=== PATIENT | female | born 1980 | race Caucasian/White ===

== ENCOUNTER 2017-12-09 09:20 | Emergency (ER) | payer OTHER ==
[~2017-12-09] VITALS: Ht 160 cm; Wt 100.0 kg
[2017-12-09 09:20] VITALS: BP 119/75; PULSE 90; RESP 16; TEMP 98.2
[~2017-12-09 09:20] MED LIST: BENZ1TAB PO; CITA10TA4 PO; LOXA10 PO; MOBI15TA PO; ZANTTAB9 PO; ZOFR4TAB3 PO
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
[2017-12-09 11:05] LABS: AUTOMATED NEUTROPHIL # 4.9 TH/MM3 (1.8-7.7); BASOPHIL # 0.1 TH/MM3 (0-0.2); BASOPHIL % 1.1 % (0.0-2.0); EOSINOPHIL # 0.2 TH/MM3 (0-0.4); HEMOGLOBIN 13.4 GM/DL (11.6-15.3); LYMPH % 28.2 % (9.0-44.0); LYMPHOCYTE # 2.2 TH/MM3 (1.0-4.8); MEAN CELL VOLUME 88.3 FL (80.0-100.0); MEAN CORPUSCULAR HEMOGLOBIN 29.5 PG (27.0-34.0); MEAN CORPUSCULAR HGB CONC 33.4 % (32.0-36.0); MEAN PLATELET VOLUME 9.7 FL (7.0-11.0); MONOCYTE # 0.6 TH/MM3 (0-0.9); NEUT % 61.7 % (16.0-70.0); PLATELET COUNT 275 TH/MM3 (150-450); RED BLOOD COUNT 4.53 MIL/MM3 (4.00-5.30); RED CELL DISTRIBUTION WIDTH 15.4 % (11.6-17.2)
[2017-12-09] MEDS ORDERED: MELO15TA20 PO (11:09)
[2017-12-09] MEDS ORDERED: ZOFR4TAB PO (11:09)
[2017-12-09] MEDS ORDERED: CITA10TA4 PO (11:09)
[2017-12-09] MEDS ORDERED: LOXA10CA PO (11:09)
[2017-12-09] MEDS ORDERED: GABA100C4 PO (11:09)
[2017-12-09] MEDS ORDERED: SUCR1TAB PO (11:09)
[2017-12-09] MEDS ORDERED: BENZ0.5T PO ×2 (11:09)
[2017-12-09 12:36] VITALS: BP 90/50
== END 2017-12-09 12:51 | disposition home or self-care (01) ==
LOC: NEPD 09:20
DX: K62.5 Hemorrhage of anus and rectum (principal); F20.9 Schizophrenia, unspecified; F32.9 Major depressive disorder, single episode, unspecified; M19.90 Unspecified osteoarthritis, unspecified site; Z72.0 Tobacco use
CPT/HCPCS: 85025; 99283